=== PATIENT | male | born 1975 | race Caucasian/White ===

== ENCOUNTER 2019-08-18 11:27 | Emergency (ER) | payer OTHER ==
[2019-08-18 12:13] VITALS: BP 151/99; PULSE 101; TEMP 98; BMI 31.3
--- NOTE | 2019-08-18 13:19 | PDOC ---
History of Present Illness - General Chief Complaint: Injury Stated Complaint: LF HAND INJURY Time Seen by Provider: 08/18/19 12:56 - History of Present Illness Initial Comments: 08/18/19 13:16 44-year-old male without comorbidities presents for evaluation of left hand pain after a concrete post fell on his hand. He complains of pain to the dorsum of the left hand. Past History - Past Medical History Allergies/Adverse Reactions: Allergies Allergy/AdvReac Type Severity Reaction Status Date / Time No Known Allergies Allergy Verified 08/18/19 11:36 COPD: No - Immunization History Immunization Up to Date: Yes - Psycho Social/Smoking Cessation Hx Smoking History: Never smoked Hx Alcohol Use: No Drug/Substance Use Hx: No Review of Systems - Review of Systems Musculoskeletal: Yes: See HPI, Joint Pain *Physical Exam - Vital Signs Last Vital Signs Temp Pulse Resp BP Pulse Ox 98.0 F 101 H 18 151/99 99 08/18/19 12:04 08/18/19 12:04 08/18/19 12:04 08/18/19 12:04 08/18/19 12:04 - Physical Exam 08/18/19 13:16 Mild swelling and purplish ecchymosis to the dorsum of the left hand. Decreased range of motion patient unable to make a full fist. No malrotation deformities. Tenderness over the dorsum of the left hand and carpus. Neurovascular intact full range of motion of the elbow and forearm. Decreased flexion extension at terminal ranges of the wrist. Neurovascular intact free of any gross sensorimotor deficits. ED Treatment Course - RADIOLOGY Radiology Studies Ordered: Category Date Time Status WRIST W/HAND-LEFT* [RAD] Stat Radiology 08/18/19 13:00 Completed Medical Decision Making - Medical Decision Making 08/18/19 13:17 X-rays of the left wrist and hand show no evidence of fracture or trauma. There is mild degenerative changes about the left wrist. There is a left hand crush injury continue to elevate and range of motion exercise shown follow-up with hand surgery Tylenol Motrin for pain Discharge - Discharge Information Problems reviewed: Yes Clinical Impression/Diagnosis: Crushing injury of left hand Condition: Stable Disposition: HOME - Admission No - Follow up/Referral Referrals: Pa Martinez MD [Staff Physician] - - Patient Discharge Instructions Additional Instructions: Elevation. Tylenol and Motrin for pain. Hand exercises as shown in the emergency room. Return to the emergency room for worsening symptoms. Without fail please follow-up with hand surgery in 2 to 3 days for further evaluation and treatment options. - Post Discharge Activity Work/Back to School Note: Back to Work
== END 2019-08-18 13:34 | disposition home or self-care (01) ==
LOC: JERFT 11:27 → JER 11:27 → JERFT 13:34
CPT/HCPCS: 73110-TC-LT-FY; 73130-TC-LT-FY; 99282-25